=== PATIENT | male | born 1970 | race Caucasian/White ===

== ENCOUNTER 2019-03-30 10:23 | Day surgery (SDC) | payer BC ==
[~2019-03-30] VITALS: Ht 182.9 cm; Wt 99.3 kg
[2019-03-30] MEDS ORDERED: IBUP200 (11:05)
[2019-03-30] MEDS ORDERED: MAXIMUM DAILY1 EACH PO (11:06)
== END 2019-03-30 13:43 | disposition home or self-care (01) ==
LOC: ORSCSDS 10:23
PROVIDERS: Orthopaedic Surgery
PROC: 0SBC4ZZ Excision of Right Knee Joint, Percutaneous Endoscopic Approach (ICD-10-PCS; principal; 2019-03-30 11:30)
DX: S83.231A Complex tear of medial meniscus, current injury, right knee, initial encounter (principal); S83.281A Other tear of lateral meniscus, current injury, right knee, initial encounter; M22.41 Chondromalacia patellae, right knee
CPT/HCPCS: J0690; J1885; J2250; J2405; J2704; J3010; J7120

== ENCOUNTER 2024-05-07 09:36 | Day surgery (SDC) | payer OTHER ==
[~2024-05-07] VITALS: Ht 182.9 cm; Wt 96.7 kg
[~2024-05-07 09:36] MED LIST: IBUP200; Lactated Ringer's 1,000 ML IV ONE; MAXIMUM DAILY1 EACH PO; propofoL 50 ML IV ONE
[2024-05-07] MEDS ORDERED: Lactated Ringer's 1,000 ML IV ONE (10:34)
[2024-05-07 11:47] VITALS: BP 109/71
== END 2024-05-07 11:36 | disposition home or self-care (01) ==
LOC: ORSCSDS 09:36
PROVIDERS: Surgery
PROC: 0DBM8ZX Excision of Descending Colon, Via Natural or Artificial Opening Endoscopic, Diagnostic (ICD-10-PCS; principal; 2024-05-07 11:00)
PROC: 0DBC8ZX Excision of Ileocecal Valve, Via Natural or Artificial Opening Endoscopic, Diagnostic (ICD-10-PCS; principal; 2024-05-07 11:00)
PROC: 0DBK8ZX Excision of Ascending Colon, Via Natural or Artificial Opening Endoscopic, Diagnostic (ICD-10-PCS; principal; 2024-05-07 11:00)
DX: Z12.11 Encounter for screening for malignant neoplasm of colon (principal); Z83.719 Family history of colon polyps, unspecified; D12.2 Benign neoplasm of ascending colon; K63.5 Polyp of colon; K64.8 Other hemorrhoids; E78.00 Pure hypercholesterolemia, unspecified; E78.1 Pure hyperglyceridemia
CPT/HCPCS: 88305; J2704; J7120

== ENCOUNTER 2024-10-16 05:55 | Day surgery (SDC) | payer OTHER ==
[~2024-10-16] VITALS: Ht 182.9 cm; Wt 99.5 kg
[2024-10-16] VITALS (13 sets, daily range): BP systolic 107–137; BP diastolic 57–92
[~2024-10-16 05:55] MED LIST changes: +CENTRUM SILVER1 EAC2 PO; -IBUP200; +IBUP200 PO; -Lactated Ringer's 1,000 ML IV ONE; -MAXIMUM DAILY1 EACH PO; -propofoL 50 ML IV ONE
[2024-10-16] MEDS ORDERED: CeFAZolin Sodium 2,000 MG in NS 100 ML IV SCH ×2 (06:10→16:00)
[2024-10-16] MEDS ORDERED: Ropivacaine 0.5% HCl/Pf 123.125 MG,EPINEPHrine HCL 0.25 MG,Ketorolac Tromethamine 15 MG... INFIL SCH (06:10)
[2024-10-16] MEDS ORDERED: Chlorhexidine Mouth Care 15 ML UDC MT SCH (06:10)
[2024-10-16] MEDS ORDERED: Tranexamic Acid 100 ML IV SCH (06:15)
--- NOTE | 2024-10-16 06:49 | NUR ---
Ambulatory in Day Surgery History, Chart, Medications and Allergies reviewed before start of procedure. Pre-Op teaching done. Pt verbalizes understanding.
[2024-10-16] MEDS ORDERED: HYDROmorphone HCl/Pf 1MG SYR IV PRN ×2 (07:10→09:35)
[2024-10-16] MEDS ORDERED: Prochlorperazine Edisylate 10 mg Vial IV PRN ×2 (07:10→09:45)
[2024-10-16] MEDS ORDERED: Albuterol 2.5 MG/3 ML VIAL INH PRN (07:10)
[2024-10-16] MEDS ORDERED: FentaNYL Citrate 50 MCG/ML 2 ML Injection IV PRN ×2 (07:10)
[2024-10-16] MEDS ORDERED: Ondansetron HCl 2 MG / ML 2ML Vial IV PRN ×2 (07:15→09:45)
[2024-10-16] MEDS ORDERED: Metoclopramide HCl 5MG / ML 2ML Vial IV PRN ×2 (07:15→09:45)
[2024-10-16] MEDS ORDERED: Ondansetron HCl 2 MG / ML 2ML Vial ONE (07:47)
[2024-10-16] MEDS ORDERED: Dexamethasone Sod Phos 10 MG/ML 1ML VIAL ONE (07:47)
--- NOTE | 2024-10-16 08:10 | NUR ---
10/16/24 0810 Anne,Neda SPINAL BLOCK COMPLETED BY [facility] ADMITTING CLERK, UPON ENTRY TO OR.
[2024-10-16] MEDS ORDERED: Ketorolac Tromethamine 30mg Vial ONE (08:50)
[2024-10-16] MEDS ORDERED: Phenylephrine HCl 100 MCG/ML-NS 10MLSYR (1MG/10ML) ONE (08:52)
[2024-10-16] MEDS ORDERED: Magnesium Hydroxide Conc 10 ML UDC PO PRN (09:45)
--- NOTE | 2024-10-16 10:23 | NUR ---
ARRIVAL TO SURGICAL UNIT ALERT, ORIENTED, & PLEASANT. ARRIVES VIA HOSPITAL BED. ABLE TO PUMP ANKLES & GROSS MOVEMENT TO BLE. PPP. BRISK CAP REFILL. R HIP w/ TELFA & TEGADERM; NO DRNG NOTED. LUNGS CLEAR ON RA. ENCOURAGED TO [facility]. DENIES N/V; SNACKS & DRINK GIVEN. C/O BURNING SENSATION TO R HIP.
[2024-10-16] MEDS ORDERED: Ketorolac Tromethamine 15mg Vial IV SCH (12:00)
[2024-10-16] MEDS ORDERED: ASPI81CH PO (12:45)
--- NOTE | 2024-10-16 15:03 | NUR ---
DISCHARGE SUMMARY PT TOLERATING INTAKE, PT SUCCESFULLY COMPLETED POST OP VOID. POD0 R NICOLETTE DRESSING C/D/I. PT AMBULATING SBA W/FWW AND GB. WORKED WITH THERAPY. PAIN MANAGED PER EMAR. D/C VIA WC AT 1500. POLAR PACK SENT W/ PT.
[2024-10-17] MEDS ORDERED: Multivitamins/Minerals 1 Tab PO SCH (09:00)
== END 2024-10-16 15:21 | disposition home or self-care (01) ==
LOC: ORSCMMR 05:55 → ORD 07:30 → SURS 10:11 → ORSCMMR 15:21
PROVIDERS: Orthopaedic Surgery
PROC: 0SR90JZ Replacement of Right Hip Joint with Synthetic Substitute, Open Approach (ICD-10-PCS; principal; 2024-10-16 07:30)
DX: M16.11 Unilateral primary osteoarthritis, right hip (principal)
CPT/HCPCS: 72170; 97116; 97162; 97530; A9270; C1776; J0166; J0690; J0735; J1100; J1885; J2371; J2405; J2704; J2795; J7120